=== PATIENT | male | born 1950 | race Caucasian/White ===

== ENCOUNTER 2016-11-14 08:58 | Outpatient (RCR) | payer MEDICARE, OTHER | END 2016-11-25 08:32 | disposition home or self-care (01) | LOC: PT 08:58 | DX: G20 Parkinson's disease (principal) ==

== ENCOUNTER → 2017-07-24 | Day surgery (SDC) | payer MEDICARE, OTHER | LOC: MSO 09:02 | DX: Z12.11 Encounter for screening for malignant neoplasm of colon (principal); Z86.010 Personal history of colon polyps; I10 Essential (primary) hypertension; K21.9 Gastro-esophageal reflux disease without esophagitis; G20 Parkinson's disease | CPT/HCPCS: G0105; 00810; J2704; J3010; J7120 ==

== ENCOUNTER 2020-09-23 11:30 | Emergency (ER) | payer MEDICARE, OTHER ==
[~2020-09-23] VITALS: Ht 190.5 cm; Wt 101.3 kg
[2020-09-23 12:13] LABS: EOS % 0.6 % (0.0-4.0); HEMATOCRIT 38.3 % (42.0-52.0); HEMOGLOBIN 12.5 g/dL (13.5-18.0); MEAN CELL VOLUME 86 fl (78-100); MEAN CORPUSCULAR HEMOGLOBIN 28 pg (27-31); MEAN CORPUSCULAR HGB CONC 33 g/dL (33-37); MEAN PLATELET VOLUME 11.3 fl (7.4-10.4); MONO # 0.6 (0.20-0.80); NEU # 3.5 (1.40-6.50); PLATELET COUNT 182 K/mm3 (130-400); RED BLOOD COUNT 4.47 M/mm3 (4.20-5.60); RED CELL DISTRIBUTION WIDTH 13.8 % (11.5-14.5); WHITE BLOOD COUNT 4.8 K/mm3 (4.8-10.8)
[2020-09-23 12:18] LABS: LYMPH# 0.7 (1.50-4.00)
[2020-09-23 12:24] LABS: ALBUMIN 2.9 g/dL (3.4-4.8)
[2020-09-23 12:26] LABS: CALCIUM 7.8 mg/dL (8.3-10.5)
[2020-09-23 12:27] LABS: TOTAL PROTEIN 5.5 g/dL (6.2-8.1)
[2020-09-23] MEDS ORDERED: PROPRANOLOL HCL40 M2 PO (12:27)
[2020-09-23] MEDS ORDERED: ZESTRIL40 M1 PO (12:28)
[2020-09-23 12:29] LABS: TOTAL BILIRUBIN 0.7 mg/dL (0.2-1.2)
[2020-09-23] MEDS ORDERED: ROPINIROLE8 M1 PO (12:30)
[2020-09-23] MEDS ORDERED: [UNRECOGNIZED DRUG - OTHER] PO (12:30)
[2020-09-23 12:37] LABS: POTASSIUM 2.9 mmol/L (3.5-5.1)
[2020-09-23 12:40] LABS: TROPONIN-I 0.03 ng/mL (<0.030)
[2020-09-23] MEDS ORDERED: AZILECT1 M1 PO (12:43)
[2020-09-23] MEDS ORDERED: ASPIRIN 81M81 MG/TA2 PO (12:43)
[2020-09-23 12:44] LABS: D-DIMER 10.51 mg/L FEU (0.15-0.50)
[2020-09-23] MEDS ORDERED: PRILOSEC OTC20 MG PO (12:44)
[2020-09-23] MEDS ORDERED: CENTRUM ADULTS1 EACH PO (12:44)
[2020-09-23 13:27] LABS: PROTHROMBIN TIME 11.6 SECONDS (9.0-12.0)
[2020-09-23 15:10] VITALS: BP 119/72
== END 2020-09-23 15:10 | disposition short-term general hospital (02) ==
LOC: ED 11:30
PROVIDERS: Physician Assistant
DX: U07.1 COVID-19 (principal); E87.6 Hypokalemia; G20 Parkinson's disease; I10 Essential (primary) hypertension; Z79.82 Long term (current) use of aspirin
CPT/HCPCS: J0696; J1100; Q9967

== ENCOUNTER → 2020-10-30 | Outpatient (CLI) | payer MEDICARE, OTHER ==
[~2020-10-30] MED LIST: ASPIRIN 81M81 MG/TA2 PO; AZILECT1 M1 PO; CENTRUM ADULTS1 EACH PO; PRILOSEC OTC20 MG PO; PROPRANOLOL HCL40 M2 PO; ROPINIROLE8 M1 PO; ZESTRIL40 M1 PO; [UNRECOGNIZED DRUG - OTHER] PO
[2020-10-30 16:25] LABS: EOS # 0.2 (0.04-0.40); EOS % 4.7 % (0.0-4.0); HEMATOCRIT 40.6 % (42.0-52.0); HEMOGLOBIN 12.9 g/dL (13.5-18.0); LYMPH# 1.1 (1.50-4.00); MEAN CELL VOLUME 88 fl (78-100); MEAN CORPUSCULAR HEMOGLOBIN 28 pg (27-31); MEAN CORPUSCULAR HGB CONC 32 g/dL (33-37); MEAN PLATELET VOLUME 10.2 fl (7.4-10.4); MONO # 0.6 (0.20-0.80); NEU # 2.8 (1.40-6.50); PLATELET COUNT 265 K/mm3 (130-400); RED BLOOD COUNT 4.62 M/mm3 (4.20-5.60); RED CELL DISTRIBUTION WIDTH 15.5 % (11.5-14.5); WHITE BLOOD COUNT 4.7 K/mm3 (4.8-10.8)
[2020-10-30 16:34] LABS: ALBUMIN 4.1 g/dL (3.4-4.8); POTASSIUM 4.4 mmol/L (3.5-5.1)
[2020-10-30 16:35] LABS: CALCIUM 9.4 mg/dL (8.3-10.5)
[2020-10-30 16:39] LABS: TOTAL BILIRUBIN 0.4 mg/dL (0.2-1.2)
[2020-10-30 17:32] LABS: ERYTHROCYTE SEDIMENTATION RATE 30 mm/hr (0-20)
== END ==
LOC: LAB 16:14
PROVIDERS: Internal Medicine
DX: I10 Essential (primary) hypertension (principal)

== ENCOUNTER → 2021-02-12 | Outpatient (CLI) | payer MEDICARE, OTHER ==
[2021-02-12 09:20] LABS: BASO # 0.02 (0.02-0.10); EOS % 3.9 % (0.0-4.0); HEMATOCRIT 42.1 % (42.0-52.0); HEMOGLOBIN 13.8 g/dL (13.5-18.0); LYMPH# 1.25 (1.50-4.00); MEAN CELL VOLUME 85 fl (78-100); MEAN CORPUSCULAR HEMOGLOBIN 28 pg (27-31); MEAN CORPUSCULAR HGB CONC 33 g/dL (33-37); MEAN PLATELET VOLUME 10.8 fl (7.4-10.4); MONO # 0.38 (0.20-0.80); NEU # 3.34 (1.40-6.50); PLATELET COUNT 150 K/mm3 (130-400); RED BLOOD COUNT 4.95 M/mm3 (4.20-5.60); RED CELL DISTRIBUTION WIDTH 14.1 % (11.5-14.5); WHITE BLOOD COUNT 5.2 K/mm3 (4.8-10.8)
[2021-02-12 09:22] LABS: ALBUMIN 3.9 g/dL (3.4-4.8); POTASSIUM 4.5 mmol/L (3.5-5.1)
[2021-02-12 09:24] LABS: TOTAL PROTEIN 6.5 g/dL (6.2-8.1)
[2021-02-12 09:26] LABS: TOTAL BILIRUBIN 0.4 mg/dL (0.2-1.2)
[2021-02-12 11:04] LABS: ERYTHROCYTE SEDIMENTATION RATE 0 mm/hr (0-20)
[2021-02-12 22:58] LABS: T3 FREE 3.5 pg/mL (1.7-3.7)
== END ==
LOC: LAB 08:07
PROVIDERS: Internal Medicine
DX: I10 Essential (primary) hypertension (principal); R73.03 Prediabetes; K90.9 Intestinal malabsorption, unspecified; E78.2 Mixed hyperlipidemia; N52.9 Male erectile dysfunction, unspecified; R79.89 Other specified abnormal findings of blood chemistry

== ENCOUNTER → 2021-02-22 | Outpatient (CLI) | payer MEDICARE, OTHER | LOC: LAB 11:23 | DX: Z12.5 Encounter for screening for malignant neoplasm of prostate (principal) ==

== ENCOUNTER → 2022-03-09 | Outpatient (CLI) | payer MEDICARE, OTHER ==
[2022-03-09 09:01] LABS: ALBUMIN 3.9 g/dL (3.4-4.8)
[2022-03-09 09:04] LABS: TOTAL PROTEIN 6.4 g/dL (6.2-8.1)
[2022-03-09 09:05] LABS: TOTAL BILIRUBIN 0.6 mg/dL (0.2-1.2)
[2022-03-09 09:11] LABS: MAGNESIUM 2.25 mg/dL (1.60-2.60)
[2022-03-09 09:15] LABS: BASO # 0.04 K/mm3 (0.02-0.10); EOS % 4.2 % (0.0-4.0); HEMATOCRIT 41.9 % (42.0-52.0); HEMOGLOBIN 13.7 g/dL (13.5-18.0); LYMPH# 0.95 K/mm3 (1.50-4.00); MEAN CELL VOLUME 90 fl (78-100); MEAN CORPUSCULAR HEMOGLOBIN 29 pg (27-31); MEAN CORPUSCULAR HGB CONC 33 g/dL (33-37); MEAN PLATELET VOLUME 10.6 fl (7.4-10.4); MONO # 0.32 K/mm3 (0.20-0.80); NEU # 3.29 K/mm3 (1.40-6.50); PLATELET COUNT 157 K/mm3 (130-400); RED BLOOD COUNT 4.66 M/mm3 (4.20-5.60); WHITE BLOOD COUNT 4.8 K/mm3 (4.8-10.8)
[2022-03-09 09:45] LABS: URINE COLOR DK YELLOW
[2022-03-09 09:46] LABS: URINE APPEARANCE CLEAR; URINE BILIRUBIN NEGATIVE (NEGATIVE); URINE BLOOD NEGATIVE (NEGATIVE); URINE GLUCOSE NEGATIVE (NEGATIVE); URINE KETONE NEGATIVE (NEGATIVE); URINE LEUKOCYTE ESTERASE NEGATIVE (NEGATIVE); URINE NITRATE NEGATIVE (NEGATIVE); URINE PROTEIN(semi-quant) TRACE (NEGATIVE); URINE UROBILINOGEN NORMAL (NORMAL); URINE WBC 0-1 /hpf (0-3)
[2022-03-09 10:29] LABS: ERYTHROCYTE SEDIMENTATION RATE 5 mm/hr (0-20)
[2022-03-09 23:09] LABS: TESTOSTERONE 280 ng/dL (221-716)
== END ==
LOC: LAB 08:12
PROVIDERS: Internal Medicine
DX: Z12.11 Encounter for screening for malignant neoplasm of colon (principal); Z12.5 Encounter for screening for malignant neoplasm of prostate; E78.2 Mixed hyperlipidemia; N52.9 Male erectile dysfunction, unspecified; I10 Essential (primary) hypertension; K90.9 Intestinal malabsorption, unspecified; R73.03 Prediabetes

== ENCOUNTER → 2022-07-27 | Outpatient (CLI) | payer MEDICARE, OTHER | LOC: AMSURD 08:52 | DX: R00.8 Other abnormalities of heart beat (principal) ==

== ENCOUNTER → 2024-04-11 | Outpatient (CLI) | payer MEDICARE, OTHER ==
[2024-04-11 09:11] LABS: BASO # 0.02 K/mm3 (0.02-0.10); EOS # 0.15 K/mm3 (0.04-0.40); EOS % 3.5 % (0.0-4.0); HEMATOCRIT 39.6 % (42.0-52.0); HEMOGLOBIN 13.4 g/dL (13.5-18.0); LYMPH# 0.92 K/mm3 (1.50-4.00); MEAN CELL VOLUME 91 fl (78-100); MEAN CORPUSCULAR HEMOGLOBIN 31 pg (27-31); MEAN CORPUSCULAR HGB CONC 34 g/dL (33-37); MEAN PLATELET VOLUME 10.3 fl (7.4-10.4); MONO # 0.36 K/mm3 (0.20-0.80); NEU # 2.78 K/mm3 (1.40-6.50); PLATELET COUNT 120 K/mm3 (130-400); RED BLOOD COUNT 4.37 M/mm3 (4.20-5.60); RED CELL DISTRIBUTION WIDTH 13.5 % (11.5-14.5); WHITE BLOOD COUNT 4.2 K/mm3 (4.8-10.8)
[2024-04-11 09:25] LABS: ALBUMIN 3.9 g/dL (3.4-4.8); PH-URINE 5.5 (5.0 - 8.0); SODIUM 142 mmol/L (136-145); URINE APPEARANCE CLEAR (CLEAR); URINE COLOR YELLOW (YELLOW); URINE GLUCOSE NEGATIVE (NEGATIVE); URINE PROTEIN(semi-quant) NEGATIVE (NEGATIVE)
[2024-04-11 09:26] LABS: CALCIUM 9.2 mg/dL (8.3-10.5); URINE BILIRUBIN NEGATIVE (NEGATIVE); URINE BLOOD NEGATIVE (NEGATIVE); URINE KETONE TRACE (NEGATIVE); URINE LEUKOCYTE ESTERASE NEGATIVE (NEGATIVE); URINE NITRATE NEGATIVE (NEGATIVE); URINE WBC 0-1 /hpf (0-3)
[2024-04-11 09:28] LABS: GLUCOSE 120 mg/dL (75-110); TOTAL PROTEIN 6.1 g/dL (6.2-8.1)
[2024-04-11 09:29] LABS: CARBON DIOXIDE 24 mmol/L (23-31)
[2024-04-11 09:30] LABS: TOTAL BILIRUBIN 0.6 mg/dL (0.2-1.2)
[2024-04-11 09:33] LABS: AST-SGOT 10 U/L (5-34)
[2024-04-11 09:34] LABS: MAGNESIUM 2.09 mg/dL (1.60-2.60)
[2024-04-11 09:47] LABS: ALT/SGPT < 6 U/L (0-55)
[2024-04-12 00:14] LABS: TESTOSTERONE 291 ng/dL (221-716)
== END ==
LOC: LAB 08:44
PROVIDERS: Internal Medicine
DX: Z12.5 Encounter for screening for malignant neoplasm of prostate (principal); Z12.11 Encounter for screening for malignant neoplasm of colon; I10 Essential (primary) hypertension; E78.2 Mixed hyperlipidemia; K90.9 Intestinal malabsorption, unspecified; R79.89 Other specified abnormal findings of blood chemistry; R73.03 Prediabetes